=== PATIENT | female | born 2000 | race Caucasian/White ===

== ENCOUNTER 2020-05-17 09:17 | Emergency (ER) | payer MEDICAID, SELFPAY ==
[2020-05-17 09:37] VITALS: BP 125/89; PULSE 109; RESP 20; TEMP 36.7; O2SAT 100; BMI 30.2
--- NOTE | 2020-05-17 09:43 | HMH.EDUTC ---
[facility] Disposition Clinical Impression: Exposure to COVID-19 virus Disposition: Home, Self-Care Condition on Discharge: Good Instructions: Preventing the Spread of Coronavirus Discharge Instructions Additional Instructions: *Monitor Temp, Over the counter Motrin or Tylenol as directed/as needed Tylenol every 4 hours and Motrin every 6 hours (as long as your family doctor has told you that you can take it) for fever or pain. and straight to ER if unable to lower temp less than 101.0 after medication given *Warm salt water gargles may help to soothe the throat *Throat Lozenges *Warm fluids like tea with honey may help to soothe the throat *Sleep elevated *Humidifier/Vaporizer *Flonase 2 sprays in each nostril daily but be aware that it may take 2-3 days before you notice improvement *Bromfed may cause drowsiness. Know how it effects you (your child) before driving, caring for small child, or sending your child to school. Not other antihistamines/allergy medications while taking bromfed Follow up IMMEDIATELY for new or worsening symptoms or no Noticeable improvement over the next 48-72 hours. 911 for difficulty breathing or swallowing You was tested for today for COVID19 your test result should be back in the next 24-48 hours, you may call to the [facility] later today or tomorrow to see if your test results are back and the result [phone] [facility] hours are 9am-9pm You was given a handout with instructions for Self Quarantine and Self isolation for while you wait on test results and what to do if they are positive If you are positive the Health Dept will be contacting you also Prescriptions: Brompheniramine/Pseudoephed/Dm [Bromfed Dm Cough Syrup] 5 - 10 ml PO Q46H PRN #150 ml PRN Reason: Cough Transmission Status: Pending to [id number] Fluticasone Propionate [Flonase 50mcg nasal spray 16gm] 1 spr NS DAILY #1 bottle Transmission Status: Pending to [id number] Referrals: Maritza Lawler [Primary Care Provider] - Forms: Work/School Release Time of Disposition: 09:48 Medical Decision Making - Sinan Inquiry Pt receiving controlled substance: No Sinan was queried for this patient: No Vital Signs: 05/17/20 09:37 Temperature 98.0 F Temperature Source Oral Pulse Rate [Radial] 109 H Respiratory Rate 20 Blood Pressure [Right Arm] 125/89 Blood Pressure Mean [Right Arm] 101 Blood Pressure Source [Right Arm] Automatic Cuff Blood Pressure Position [Right Arm] Sitting 02 Sat by Pulse Oximetry 100 Oxygen Delivery Method Room Air Orders (Tests/Meds): ORDERS Category Date Time Status Covid-19 Nasal PCR ([facility]) Routine Lab 05/17/20 09:35 Ordered [facility] HPI - General Stated complaint: Covid exposure Time Seen by Provider: 05/17/20 09:43 Mode of Arrival: Ambulatory Source of Information: Patient Limitations: No Limitations Description of Symptoms (Recalled from Triage Doc. by RN): covid test HEENT Symptoms (Recalled from RN notes): No Resp Symptoms (Recalled from RN notes): No Skin Symptoms (Recalled from RN notes): No MS Symptoms (Recalled from RN notes): No Functional Status (Recalled from RN notes): wnl - History of Present Illness Provider Complaint: Patient state that she was recently exposed to family member that tested positive for COVID States that he was having some sinus drainage and cough a couple of days ago but now is just having cough Denies fever, denies any other symptoms - Related Data Previous Rx's Medication Instructions Recorded Brompheniramine/Pseudoephed/Dm 5 - 10 ml PO Q46H PRN #150 ml 05/17/20 [Bromfed Dm Cough Syrup] Fluticasone Propionate [Flonase 1 spr NS DAILY #1 bottle 05/17/20 50mcg nasal spray 16gm] Allergies Allergy/AdvReac Type Severity Reaction Status Date / Time No Known Allergies Allergy Verified 05/17/20 09:40 - Worker's Comp Is this a Worker's Comp case?: No [facility] History - Hepatitis A Screen Drug use history?: No High ri
[2020-05-17 10:10] VITALS: BP 125/89; PULSE 109; RESP 20; TEMP 36.7; O2SAT 100
[2020-05-18 10:42] LABS: Covid-19 Nasal PCR Sendout Lex Not Detected
== END 2020-05-17 10:11 | disposition home or self-care (01) ==
PROVIDERS: Emergency Provider Nurse Practitioner; PCP Physician Assistant
DX: Z20.828 Contact with and (suspected) exposure to other viral communicable diseases (principal)
CPT/HCPCS: 99201; U0004

== ENCOUNTER 2024-09-03 10:45 | Emergency (ER) | payer MEDICAID, SELFPAY ==
[2024-09-03 10:49] VITALS: BP 134/84; PULSE 85; RESP 18; TEMP 36.8; O2SAT 100; BMI 33.0
--- NOTE | 2024-09-03 11:01 | PC.NURSE ---
dr huff at bedside
[2024-09-03 11:02] VITALS: BP 154/91; PULSE 96; O2SAT 98
--- NOTE | 2024-09-03 11:13 | ED_ITS ---
Discharge Plan Disposition Patient Disposition: Home, Self-Care Prescriptions Prescriptions: New amoxicillin-pot clavulanate 875-125 mg tablet 1 tab PO BID 10 Days Qty: 20 0RF Referrals Follow up/Referrals: Chris Clemens MD [Primary Care Provider] - See instructions Activity Restrictions/Add. Instructions Additional Instructions/Restrictions: Your symptoms are consistent with a soft tissue infection of your face. Given the fact that you had preceding dental pain this is most likely an odontogenic/tooth infection that spread into the soft tissue of the face. On bedside ultrasound there was no obvious local drainable fluid collection needing surgery. Additionally, currently a CT scan has significant radiation exposure outweighs any benefit at the moment. We will trial oral antibiotics. I do recommend that you follow-up closely with dentistry. I have given you instructions for any emergency of [place] walk-in dental clinic. Please return with significant worsening swelling redness fevers or other concerns. Urgent Care Clinic REGISTRATION IS NOT A GUARANTEE OF CARE Location:?[facility], [address] [place] [address] Phone Number:?[phone] The Urgent [facility] Clinic ([facility]) is a walk-in clinic for patients, 14 years of age and older, needing immediate care due to dental pain and swelling.?The Urgent Care Clinic is a student clinic. Patient evaluations and examinations are?carried out by dental students under the supervisions of expert dentists. Urgent Care Clinic?Registration Hours * *Clinic registration is open 7:45-10:30 am, Thursday through Thursday (closed on holidays and other dates-see below). * Patients are seen on a first come, first served basis and may experience wait times. Services are only available for a select number of patients each day.? IMPORTANT REGISTRATION NOTE:?Registeration hours are subject to close early if the clinic reaches full patient capacity for the day. Important Urgent Care Clinic Facts: * IV SEDATION & NITROUS OXIDE (laughing gas) are not available treatment options?at the [facility]?clinic. * Procedures and provided care limited to one tooth. * No removal of impacted wisdom teeth. * No comprehensive dental treatment (restorations, root canals, crowns, dentures, etc.). * If there is no sign of acute infection or pain, you will be referred to another dental clinic to establish care.? * If, upon evaluation, the scope of the patient's needs are beyond the capabilities of the dental student providers, treatment will be referred to another clinic.? Payment Details * A $129 evaluation fee, which includes an examination and X-ray, is due upon registration for non-contracted?/ self-paid patient. * An additional payment will be required at time of service depending on treatment provided and any contracted?insurance benefits for all patient categories (including?non-contracted?/ self-paid patient). * Dentistry accepts check, money order, VISA, MasterCard, Discover, and [employer]. * Learn more [email or web address] [phone] [facility] Closure Dates *Dates are subject to change. Please check our Facebook page for closure notices.? 2023??? * June 20?2024 * August 24? * September 09 * September 28? * October 12? * October 27?2 * November 04 * November 09 * November 11 * November 16 * November 18 * November 21?? * November 23 * November 25 * November 30 * December 02 For dental emergencies when other clinic options are closed, call [phone]. Updated: Febr Clinical Impressions Clinical Impression: Cellulitis of face, Pain, dental Print Language Print Language: Armenian Discharge ED Provider: Óscar Ny General Adult HPI General Chief complaint: Dental/Oral Stated complaint: swelling in right side of jaw w/pain Time Seen by Provider: 09/03/24 10:51 Mode of Arrival: Ambulatory Source of Information: Patient Description of Symptoms (Recalled from ER Triage Doc. by RN): Patient presents ambulatory to triage. States she started having swelling to her right lower jaw and submandibular region on . States it has increased both in size and in intensity. Patient states she has been unable to sleep or eat. Denies fevers. Denies vomiting. Endorses nausea. Denies noticing any physical teeth abnormalities, but states, Something is going on. My teeth, gums, and jaw all hurt. Patient states she has taken Iburpofen 800mg at 0530. States she has also attempted Tylenol Naproxen with no relief. History of Present Illness HPI narrative: Patient is a 24-year-old presented today with dental and facial pain. She states this started on started off with dental/gum pain on the right lower mandibular aspect of her mouth subsequently has developed some swelling over the angle of the mandible. Denies any fevers. Denies any recent or ongoing viral symptoms. Related Data Previous Rx's ?Medication ?Instructions ?Recorded amoxicillin 875 mg-potassium 1 tab PO BID 10 days #20 tabs 09/03/24 clavulanate 125 mg tablet Allergies Allergy/AdvReac Type Severity Reaction Status Date / Time No Known Allergies Allergy Verified 05/17/20 09:40 [facility] Disclaimer: The information contained in this section may have been updated after the patient was seen, as this information can be updated by other users. Social History Smoking Status: Current every day smoker alcohol intake: never current occupational status: other Travel in the last 8 weeks: None housing: house Have you lived/traveled outside [place] in past 30 days?: No Contact w/someone who lives/traveled outside US past 30 days?: No Exposure to someone with infectious disease in past 14 days?: No Do you have a fever (greater than 100.4 F or 38 C)?: No Have you tested positive for COVID-19: No Exposed to someone with COVID-19 in past 14 days?: No Do you have a sore throat?: No Do you have a cough?: No Do you have any weakness?: No Do you have any diarrhea?: No Are you experiencing any unusual bleeding?: No Do you have any muscle aches/pain?: No Do you have any abdominal pain?: No Are you experiencing loss of taste or smell?: No ROS Obtained: Yes All systems reviewed & no additional complaints except as documented Physical Exam General General appearance: alert and in no apparent distress Expanded Head Exam Head image: 2 1. Soft tissue swelling and tenderness ENT ENT exam: Present other (Dentition is good no obvious fluctuant mass or dental caries or necrosis) Respiratory Respiratory exam: Present normal lung sounds bilaterally Cardiovascular Cardiovascular exam: Present regular rate Neurological Exam Neurological exam: Present alert Medical Decision Making Medical Records Screening: Per USPSTF and CDC recommendations, given the prevalence of disease in our region, it is our hospital?s policy to screen for HIV and viral Hepatitis for all patients aged 18 and over and those with ongoing risk factors. Sinan Inquiry Pt receiving controlled substance: No Vital Signs: 09/03/24 10:49 09/03/24 11:02 Temperature 98.3 F Temperature Source Oral Pulse Rate 96 H Pulse Rate [Radial] 85 Respiratory Rate 18 Blood Pressure 154/91 H Blood Pressure [R Arm] 134/84 Blood Pressure Mean [R Arm] 100 Blood Pressure Source Automatic Cuff Blood Pressure Source [R Arm] Manual Cuff/ Doppler Blood Pressure Position [R Arm] Sitting 02 Sat by Pulse Oximetry 100 98 Oxygen Delivery Method Room Air Room Air Orders (Tests/Meds): ED MEDICATIONS Generic Name Dose Route Start Last Admin Trade Name Freq PRN Reason Stop Dose Admin Amoxicillin/Clavulanate Potassium 1 each 09/03/24 11:08 Amoxicillin/Clavulanate Potassium 875/125mg Tablet PO 09/03/24 11:09 ONCE ONE ORDERS Category Date Time Status POCUS Point of Care (ER Only) Stat Exams 09/03/24 10:57 Ordered Medical Decision Narrative: 24-year-old presents today with angle of the mandible soft tissue swelling. This started with what sounds like odontogenic type pain most likely an odontogenic infection that spread to facial cellulitis. Bedside ultrasound did not demonstrate a local drainable fluid collection rather nonspecific soft tissue swelling. Additionally could be localized swelling or inflammation of her salivary glands. I do not appreciate both on ultrasound or on physical exam any type of stones. No purulence coming from any of the ducts in her mouth. She has been trying Tylenol and ibuprofen at home without improvement. Dental balls were provided in the emergency department. She has been vies to continue to take Tylenol and ibuprofen. We discussed CT scans utilization at the moment but I do not believe it would change any emergent management as I do not believe she needs any surgical intervention at the moment I think radiation exposure would outweigh any benefit in this particular situation. She is very aware that this could worsen in that case we will need to pull the trigger on CT imaging. Differential at the moment is primarily dental genic infection with facial cellulitis which is my working diagnosis versus localized inflammation of salivary gland which could be viral. She understands there is some diagnostic uncertainty we will try an oral course of antibiotics. Have also given her follow-up instruction with a [facility] dental walk-in clinic. Patient discharged in stable condition. Critical Care Critical Care Time Critical Care Time: No
[2024-09-03] MEDS: LIDOCAINE 2% VISCOUS SOL 15ML UDC 15 ML PO (11:16)
[2024-09-03] MEDS: TETRACAINE/BENZOCAINE/BUTAMBEN 56 GM SPRAY TP (11:16)
[2024-09-03] MEDS: AMOXICILLIN/CLAVULANATE POTASSIUM 875/125MG TABLET 1 EACH PO (11:17)
--- NOTE | 2024-09-03 11:23 | PC.NURSE ---
Pt states she would like a dental block, however she wants to wait for her mother to arrive and she will be here in [address] Ny notified of this.
[2024-09-03 11:25] VITALS: BP 150/88; PULSE 80; RESP 20; TEMP 36.8; O2SAT 98
[2024-09-03] MEDS: BUPIVACAINE 0.5% 30ML VIAL 5 MG IJ (11:30)
[2024-09-03] MEDS: LIDOCAINE 1% W/EPI 1:100,000 20ML VIAL 5 ML IJ (11:30)
== END 2024-09-03 11:52 | disposition home or self-care (01) ==
PROVIDERS: Emergency Provider Student in an Organized Health Care Education/Training Program; PCP Emergency Medicine
DX: R22.0 Localized swelling, mass and lump, head (principal); R11.0 Nausea; K08.89 Other specified disorders of teeth and supporting structures; L03.211 Cellulitis of face; Z72.0 Tobacco use
CPT/HCPCS: 99283; C9144